=== PATIENT | female | born 1945 | race Caucasian/White ===

== ENCOUNTER → 2016-04-30 | Outpatient (CLI) | payer OTHER, MEDICARE ==
--- NOTE | 2016-04-30 17:10 | CT ---
CT Chest Without Contrast 1120 hours Indication: Follow-up pulmonary nodule. Technique: Spiral images were obtained through the chest. Images were reviewed in multiple planes . Dose reduction techniques were utilized. Comparison: Prior outside CT heart scan from [facility] from October 11, 2015. Findings: Lung and large airways: There is scarring evident in the right upper lobe extending to the right lung apex as well as fibrotic band left lower lobe posterolaterally. There is some nodular thickening in the right lower lobe and left upper lobe with some subtle nodularity that could represent scarring ve rsus less likely significant pulmonary nodule as follows. These are stable in appearance when compare d to the prior study allowing for difference in technique. Superior segment right lower lobe laterally, series 3, image 94, 6 x 4 mm Superior segment right lower lobe laterally, image 103, 7 x 3 mm Right lower lobe anterolaterally, image 124, 3 x 2 mm Left upper lobe centrally, image 66, 6 x 3 mm Bronchi: No significant bronchial wall thickening Pleura: Normal. Vessels: The thoracic aorta has a normal contour. There is no aneurysm or dissection. Minimal calcifi ed plaque is suspected proximal right coronary artery. Heart and pericardium: Normal. Mediastinum and bernie: Calcified bilateral hilar and subcarinal nodes are present as well as calcified nodes in the AP window and pretracheal locations. Small nodes are also seen in the superior mediasti num with faint calcifications suspected.. Chest wall and lower neck: Normal. Limited upper abdomen: There is a 2 mm nonobstructive calculus upper pole left kidney. No significant mass is seen within the upper abdomen. Small hiatal hernia is noted.. Skeletal system: Vertebral body heights are well-maintained. There are no lytic or sclerotic osseous lesions. There is mild to moderate dextroscoliosis upper thoracic spine. Impression: 1. Probably benign bilateral pulmonary nodules as detailed above. These are relatively stable when co mpared to prior outside CT study allowing for slight difference in technique. Consider follow-up CT t he chest without contrast in 12 months to confirm stability and benign features since the nodules wer e better delineated on today's study and some were not included on the prior outside CT study. 2. Calcified bilateral hilar and mediastinal lymph nodes. While this could be related to granulomatou s disease, the possibility of underlying sarcoidosis may be considered. 3. Nonobstructive calculus upper pole left kidney. 4. Small hiatal hernia.. 5. Scarring right upper lobe and left lung base.
== END ==
LOC: FIMAGING 10:22
PROVIDERS: ATTEND Internal Medicine
DX: R91.1 Solitary pulmonary nodule (principal); N20.0 Calculus of kidney; K44.9 Diaphragmatic hernia without obstruction or gangrene

== ENCOUNTER → 2017-06-03 | Outpatient (CLI) | payer OTHER, MEDICARE | LOC: FIMAGING 10:52 | PROVIDERS: ATTEND Internal Medicine | DX: R91.8 Other nonspecific abnormal finding of lung field (principal); N20.0 Calculus of kidney ==

== ENCOUNTER → 2017-06-16 | Outpatient (CLI) | payer OTHER, MEDICARE | LOC: BMCIMAGING 10:00 | PROVIDERS: ATTEND Internal Medicine | DX: M43.12 Spondylolisthesis, cervical region (principal); M43.13 Spondylolisthesis, cervicothoracic region ==

== ENCOUNTER → 2018-06-24 | Outpatient (CLI) | payer OTHER, MEDICARE | LOC: FIMAGING 11:34 | PROVIDERS: ATTEND Internal Medicine | DX: R91.1 Solitary pulmonary nodule (principal) ==